=== PATIENT | male | born 1980 | race Caucasian/White ===

== ENCOUNTER 2022-07-14 11:31 | Inpatient (IN) | payer MEDICARE, MEDICAID, SELFPAY ==
[2022-07-14 11:24] VITALS: BMI 32.3
[2022-07-14] MEDS: nicotine 2 mg Gum BUCCAL (13:01)
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
[2022-07-14 14:00] VITALS: BP 149/77; PULSE 84; RESP 18; TEMP 36.6; O2SAT 96
[2022-07-14 19:54] VITALS: BP 159/89; PULSE 64; RESP 16; TEMP 36.6; O2SAT 97
[2022-07-15 06:00] VITALS: BP 133/79; PULSE 70; RESP 18; TEMP 36.6; O2SAT 96
--- NOTE | 2022-07-15 09:03 | P.NPUHP_ITS ---
Providers/Chief Complaint Admitting Physician: Luan Davey MD Chief Complaint: depression HPI NPU History of Present Illness Aguilar Garvey is a 42 year old male who presented to outside hospital reporting suicidal thoughts and concerns for safety. He was transferred to [facility] and admitted to the neuropsychiatric unit for definitive treatment of those issues. He presents today as a very poor historian and often having dramatic pauses then without the question being answered. He reports that he is not currently on medication and that when he had been on medication in the past the medications made him feel worse and not better. Reported there was a period time where he tried medication and felt sluggish and worse overall. He endorsed not knowing the name of medication. He reports that there has been times he has had some outpatient services. He tested but was unclear that he may have had 1 or 2 previous inpatient hospitalizations with any sort retracted that. He appeared confused and disorganized. He reported that he does smoke cigarettes but may be half a pack of cigarettes a week. He denies significant alcohol but did report marijuana use. He denied any other illicit drugs. He denied any drug and alcohol treatment and denied any addiction related charges. The best he appeared to be able to explain was that the reason for his presentation was related to a conflict with his . But whenever he went to explain the situation there were long pauses at times he was actually tearful and eventually he made comments like it does not matter. He reported that he and his had a conflict and that he discovered? When I continue to question when he discovered he never finished the comment. When I alluded to the fact that she had an affair he would not confirm that. When I suggested that she was talking to someone else, he would not confirm that. Then he would say that she always said she would never leave him and that they were solid. And when it seem like he was on the verge of sharing something he would not again go back to it does not matter. When asked whether this was a statement of him feeling suicidal he would not answer and then he would often cry. He was able to articulate an openness to get tobacco replacement as he did say I would like to have a cigarette. We discussed the risks benefits and alternatives of medication to help his mood, but he appeared to paralyzed to consider the possibility. Additionally he was limited in his ability to answer questions of psychosocial history. He appeared to state he had a very possibly 3 times, that he possibly has 6 children but most questions were met with these long pauses. Meds NPU Home Medications Medication Instructions Recorded Confirmed Last Taken Type No Known Home Medications 07/14/22 07/14/22 Unknown History Allergies Allergy/AdvReac Type Severity Reaction Status Date / Time No Known Allergies Allergy Verified 07/14/22 13:20 Mental Status Exam MSE Comments: This is a well-nourished, well-developed white male in hospital scrubs with adequate grooming but limited eye contact. Significant tattooing on his exposed skin. No abnormal movements except for significant psychomotor retardation. Mostly cooperative with exam in moderate to extreme distress. Speech was limited and decreased rate and volume with extended pauses. Thought process disorganized. Thought content: Patient would not leave answer questions related to lethality with not appearing outwardly or inwardly aggressive, there were no delusions reported but it was unclear whether some of these thoughts represent paranoia or auditory delusions, he did not appear to be attending to internal stimuli. Attention and concentration was limited and memory was unreliable but none were formally tested. He was alert and oriented x3. Insight and judgment appear impaired impulse control appears limited. Vitals/I&O/Wt Last Vital Signs Temp 98 F 07/14/22 14:00 Pulse 84 07/14/22 14:00 Resp 18 07/14/22 14:00 BP 149/77 07/14/22 14:00 Pulse Ox 96 07/14/22 14:00 O2 Del Method 07/14/22 11:24 Weight last 48 hrs Weight 90.718 kg Weight 90.718 kg A&P Assessment and plan (1) PTSD (post-traumatic stress disorder): (2) Psychosis: (3) Partner relational problem: (4) Depression: Plan This is a 42-year-old white male with a reported history of PTSD who presents with a very poor historian appearing depressed and despondent about his relationship with his but also possibly exhibiting psychosis as he appeared quite disorganized and unable to articulate the specifics of what was going on. 1. Continue as needed medications as patient is currently on no medication. Attempt to get collateral information and explore whether a mood stabilizer, antipsychotic, antidepressant might be warranted. 2. Continue to test her safety. 3. Encourage individual, group and milieu therapy. 4. Encourage sober living treatment after discharge level of care to which he willing to commit if we can identify that there is a higher addiction presents that he has let on. Involuntary Hold Information 96 Hour Hold: 96 Hour Involuntary Admission: No Attestations NPU Medical Necessity Statement*: Inpatient hospitalization is medically necessary at the clinically appropriate range at this time. We will monitor medications and initiate/make changes as indicated. Patient will be in the hospital for over 2 midnights. Likely to stay 4 to 6 days. Coding Level of Care Code Acute Prosthetics Lab Technician for Pj Stricklandd Diagnoses PTSD (post-traumatic stress disorder) F43.10 Psychosis F29 Partner relational problem Z63.0 Depression F32.A
[2022-07-15] MEDS: nicotine 21 mg Patch 1 PATCH TRANSDERMA (10:02)
[2022-07-15] MEDS: OLANZapine 5 mg ODT PO (11:59)
[2022-07-15 14:00] VITALS: RESP 17
[2022-07-15] MEDS: haloperidol 5 mg Tablet PO (18:19)
[2022-07-15 20:25] VITALS: BP 137/89; PULSE 71; RESP 17; TEMP 36.6; O2SAT 94
[2022-07-16 06:00] VITALS: BP 155/69; PULSE 63; RESP 16; TEMP 36.8; O2SAT 94
[2022-07-16 14:00] VITALS: BP 162/91; PULSE 86; RESP 16; TEMP 36.8; O2SAT 96
--- NOTE | 2022-07-16 19:33 | P.NPUPN_ITS ---
Subjective NPU Subjective: Patient is a 42-year-old white male admitted voluntarily with increased paranoia and a reported history of PTSD. The patient had reported that he did not wish to consider medications and stated that he wanted time to get his thoughts sorted. The patient had been informed that his would not be willing to have the patient return home unless he can considered getting help to manage his mood and his paranoia. The patient appeared somewhat isolative on the milieu and appeared to be at times confused while having conversations with himself. Mental Status Exam MSE Comments: Parviz is a short male who appeared his stated age. His mood was described as okay. His affect appeared odd and subdued. His thought process appeared to be nonlinear and somewhat disorganized. His thought content a ppeared superficial with some rambling speech noted as well. He did at times appear to be hypervigilant and responding to internal stimuli as there was evidence of thought blocking and clear evidence of paranoia. His insight was feeble. His judgment is feeble. His impulse control appeared guarded. Vitals/I&O/Wt Last Vital Signs Temp 98.2 F 07/16/22 14:00 Pulse 86 07/16/22 14:00 Resp 16 07/16/22 14:00 BP 162/91 07/16/22 14:00 Pulse Ox 96 07/16/22 14:00 O2 Del Method 07/16/22 06:00 A&P Assessment and plan (1) PTSD (post-traumatic stress disorder): (2) Impulse control disorder: Plan Patient is a [age]-year-old white male with reported history of PTSD admitted with increased paranoia currently refusing medications. 1. We will attempt to gather collateral information as the patient currently is refusing any medications but does not appear to be showing any level of improvement here on the milieu. 2. Consider antipsychotics to target disorganized thinking. 3. continue to engage in individual and milieu therapy. Involuntary Hold Information 96 Hour Hold: 96 Hour Involuntary Admission: No Attestations NPU Medical Necessity Statement*: Inpatient hospitalization is medically necessary and the clinically appropriate intervention at this time. Continue 15 minute check for safety. Coding Level of Care Code Established Pt Acute Hvac Mechanical Engineer for Pj Fwnelda Patient Type Established History Problem Focused Exam Problem Focused Medical Decision Making Straight Forward Diagnoses PTSD (post-traumatic stress disorder) F43.10 Impulse control disorder F63.9
[2022-07-16] MEDS: OLANZapine 5 mg ODT PO (19:58)
[2022-07-16] MEDS: trazodone 50 mg Tablet PO (19:59)
[2022-07-16 20:26] VITALS: BP 136/86; PULSE 81; RESP 17; TEMP 36.9; O2SAT 96
[2022-07-16] MEDS: nicotine 2 mg Gum BUCCAL (20:48)
[2022-07-17] MEDS: trazodone 50 mg Tablet PO ×2 (03:19→20:25)
[2022-07-17 06:00] VITALS: BP 134/67; PULSE 98; RESP 17; TEMP 36.7; O2SAT 94
[2022-07-17] MEDS: nicotine 2 mg Gum BUCCAL (06:54)
[2022-07-17] MEDS: nicotine 21 mg Patch 1 PATCH TRANSDERMA (08:17)
[2022-07-17 14:00] VITALS: BP 158/99; PULSE 85; RESP 16; TEMP 36.8; O2SAT 98
[2022-07-17] MEDS: haloperidol 5 mg Tablet PO (16:54)
--- NOTE | 2022-07-17 18:37 | W.PM.NPUPNS ---
Subjective NPU Subjective: Patient is a 42-year-old white male admitted voluntarily with increased paranoia and a reported history of PTSD. Patient continued to report that he is thoughts were all confused. He had expressed concern about wanting to take medications and had an extensive discussion with the patient case manager and the typewriter operator automatic of this note regarding how these medications had made him feel like less of a man. He had remained somewhat isolative and uninvolved in group and in milieu therapy. The patient had reported having struggles with tolerating specific medications despite some information from his that his mood and thoughts were under better control with these medications. Patient reported that he continues to have a hard time managing the thoughts regarding his having an affair and reports that his trust towards others was ruined because of this. Mental Status Exam MSE Comments: Parviz is a short male who appeared his stated age. His mood was described as not good. His affect appeared odd and subdued. His thought process appeared to be nonlinear and somewhat disorganized. His thought content showed evidence of thought blocking and active paranoia. Speech: showed normal volume, inconsistent rate with periods of word finding issues, His insight was feeble. His judgment is feeble. His impulse control appeared guarded. Vitals/I&O/Wt Last Vital Signs Temp 98.2 F 07/17/22 14:00 Pulse 85 07/17/22 14:00 Resp 16 07/17/22 14:00 BP 158/99 07/17/22 14:00 Pulse Ox 98 07/17/22 14:00 O2 Del Method 07/17/22 14:00 A&P Assessment and plan (1) PTSD (post-traumatic stress disorder): (2) Impulse control disorder: (3) Psychotic disorder: Plan Patient is a [age]-year-old white male with reported history of PTSD admitted with increased paranoia currently refusing medications. 1. We will attempt to gather collateral information as the patient currently is refusing any medications but does not appear to be showing any level of improvement here on the milieu. 2. Consider antipsychotics to target disorganized thinking. 3. continue to engage in individual and milieu therapy. 4. Patient to be hospitalized involuntarily, he is homeless and shows evidence of paranoia and would require antipsychotic treatment. Involuntary Hold Information 96 Hour Hold: 96 Hour Involuntary Admission: No Attestations NPU Medical Necessity Statement*: Inpatient hospitalization is medically necessary and the clinically appropriate intervention at this time. Patient length of stay likely between 7 and 10 days. Continue 15 minute check for safety. Coding Level of Care Code Established Pt Acute Sales Operations Analyst for Reinaldog Fwnelda Patient Type Established History Problem Focused Exam Problem Focused Medical Decision Making Straight Forward Diagnoses PTSD (post-traumatic stress disorder) F43.10 Impulse control disorder F63.9 Psychotic disorder F29
[2022-07-17] MEDS: OLANZapine 5 mg ODT PO (20:25)
[2022-07-17 22:00] VITALS: BP 113/66; PULSE 70; RESP 16; TEMP 36.7; O2SAT 99
[2022-07-18 06:00] VITALS: BP 117/68; PULSE 71; RESP 16; TEMP 36.6; O2SAT 96
[2022-07-18] MEDS: OLANZapine 5 mg ODT PO ×2 (11:46→19:58)
[2022-07-18 14:00] VITALS: BP 166/61; PULSE 66; RESP 17; TEMP 36.9; O2SAT 96
--- NOTE | 2022-07-18 18:34 | P.NPUPN_ITS ---
Subjective NPU Subjective: Patient is a 42-year-old white male admitted voluntarily with increased paranoia and a reported history of PTSD. The patient continues to spend a significant time pacing around the unit upon defecating about what was going on in his head. He reports that he did not wish to take any medications at this time. He did report that the thoughts in his head and images in his had tended to distract him. The patient reported feeling like I am being kicked around in this place . He reports that he was trying to sort through things. He states that he had struggles with attending groups because he was distracted by his thoughts. Mental Status Exam MSE Comments: He is a short male who appeared his stated age. His mood was described as not good. His affect appeared odd and subdued. His thought process appeared to be nonlinear and somewhat disorganized. His thought content showed evidence of thought blocking and active paranoia. Speech: showed normal volume, inconsistent rate with periods of word finding issues with increase latency in speech, His insight was feeble. His judgment is feeble. His impulse control appeared guarded. Vitals/I&O/Wt Last Vital Signs Temp 98.4 F 07/18/22 14:00 Pulse 66 07/18/22 14:00 Resp 17 07/18/22 14:00 BP 166/61 07/18/22 14:00 Pulse Ox 96 07/18/22 14:00 O2 Del Method 07/17/22 14:00 A&P Assessment and plan (1) PTSD (post-traumatic stress disorder): (2) Impulse control disorder: (3) Psychotic disorder: Plan Patient is a [age]-year-old white male with reported history of PTSD admitted with increased paranoia currently refusing medications. 1. We will attempt to gather collateral information as the patient currently is refusing any medications but does not appear to be showing any level of improvement here on the milieu. 2. Consider antipsychotics to target disorganized thinking. 3. continue to engage in individual and milieu therapy. 4. Patient hospitalized involuntarily, he is homeless and shows evidence of paranoia and would require antipsychotic treatment. He may require forced medication. Involuntary Hold Information 96 Hour Hold: 96 Hour Involuntary Admission: No Attestations NPU Medical Necessity Statement*: Inpatient hospitalization is medically necessary and the clinically appropriate intervention at this time. Patient length of stay likely was between 7 and 10 days. Continue 15 minute check for safety. Coding Level of Care Code Established Pt Acute Pet Care Associate for Chg Fwd Patient Type Established History Problem Focused Exam Problem Focused Medical Decision Making Straight Forward Diagnoses PTSD (post-traumatic stress disorder) F43.10 Impulse control disorder F63.9 Psychotic disorder F29
[2022-07-18] MEDS: trazodone 50 mg Tablet PO (19:58)
[2022-07-18 20:34] VITALS: BP 135/88; PULSE 85; RESP 16; TEMP 36.4; O2SAT 95
[2022-07-19 06:00] VITALS: BP 120/60; PULSE 56; RESP 18; TEMP 37; O2SAT 98
[2022-07-19 14:00] VITALS: BP 122/72; PULSE 68; RESP 18; TEMP 36.1; O2SAT 97
--- NOTE | 2022-07-19 20:31 | P.NPUPN_ITS ---
Subjective NPU Subjective: Patient is a 42-year-old white male admitted voluntarily with increased paranoia and a reported history of PTSD. Patient continued to pace on the unit and reported that he was continuing to hear voices and has had and continued to report having intense images that he was unable to remove from his head. He continued to be actively paranoid and continued to refuse any medications at this time. The patient had reported that he wished to return home but was informed that his family members wished for him to get help prior to returning home. Mental Status Exam MSE Comments: He is a short male who appeared his stated age. His mood was described as not good. His affect appeared odd and subdued. His thought process appeared to be nonlinear and somewhat disorganized. His thought content showed evidence of thought blocking and active paranoia. Speech: showed normal volume, with active periods of word finding issues with increase latency in speech, His insight was feeble. His judgment is feeble. His impulse control appeared guarded. Vitals/I&O/Wt Last Vital Signs Temp 97 F L 07/19/22 14:00 Pulse 68 07/19/22 14:00 Resp 18 07/19/22 14:00 BP 122/72 07/19/22 14:00 Pulse Ox 97 07/19/22 14:00 O2 Del Method 07/19/22 06:00 A&P Assessment and plan (1) PTSD (post-traumatic stress disorder): (2) Impulse control disorder: (3) Psychotic disorder: Plan Patient is a 44 year-old white male with reported history of PTSD, psychosis NOS he has thus admitted with increased paranoia currently refusing medications. 1. We will attempt to gather collateral information as the patient currently is refusing any medications but does not appear to be showing any level of improvement here on the milieu. 2. Consider antipsychotics to target disorganized thinking. 3. continue to engage in individual and milieu therapy. 4. Patient hospitalized involuntarily, he is homeless and shows evidence of paranoia and would require antipsychotic treatment. He may require forced medication. Involuntary Hold Information 96 Hour Hold: 96 Hour Involuntary Admission: No Attestations NPU Medical Necessity Statement*: Inpatient hospitalization is medically necessary and the clinically appropriate intervention at this time. Patient length of stay likely was between 7 and 10 days. Coding Level of Care Code Established Pt Acute Cartridge Maker for Reinaldog Fwd Patient Type Established History Problem Focused Exam Problem Focused Medical Decision Making Straight Forward Diagnoses PTSD (post-traumatic stress disorder) F43.10 Impulse control disorder F63.9 Psychotic disorder F29
[2022-07-19 22:00] VITALS: BP 131/83; PULSE 73; RESP 17; TEMP 36.7; O2SAT 97
[2022-07-20] MEDS: hyDROXYzine 25 mg Capsule 50 MG PO (02:10)
[2022-07-20 06:00] VITALS: BP 136/78; PULSE 86; RESP 17; TEMP 36.9; O2SAT 94
--- NOTE | 2022-07-20 10:58 | PC.NURSE ---
Behavioral Assessment Patient sitting on edge of bed. Denies SI/HI and VH/AH. He is very tearful this morning. We talked about his and kids and he stated, My mom and sister and my don't get along for some reason. I don't know why, but something has to have happened that I don't know about. Patient also states he doesn't have anything anymore. He is disheveled and avoids making eye contact. Patient is cooperative.
[2022-07-20 14:00] VITALS: BP 150/83; PULSE 73; RESP 18; TEMP 36.6; O2SAT 97
--- NOTE | 2022-07-20 18:50 | W.PM.NPUPNS ---
Subjective NPU Subjective: Patient is a 42-year-old white male admitted voluntarily with increased paranoia and a reported history of PTSD. Patient continues to endorse hearing voices and reports that it was often distracting. He reports that his thoughts were not clear. He reported continued difficulties with concentration and sleep. He had reported feeling frustrated and stated that he had trouble trusting anyone's intention he both here and outside at home. The patient denied thoughts of hurting himself or others but reported difficulties with being able to concentrate or focus because of the internal distraction. Mental Status Exam MSE Comments: He is a short male who appeared his stated age. His mood was described as terrible. His affect appeared odd and subdued. His thought process appeared to be nonlinear and somewhat disorganized. His thought content showed evidence of thought blocking and active paranoia. Speech: showed normal volume, with active periods of word finding issues with increase latency in speech, His insight was feeble. His judgment is feeble. His impulse control appeared guarded. Vitals/I&O/Wt Last Vital Signs Temp 98 F 07/20/22 14:00 Pulse 73 07/20/22 14:00 Resp 18 07/20/22 14:00 BP 150/83 07/20/22 14:00 Pulse Ox 97 07/20/22 14:00 O2 Del Method 07/20/22 06:00 A&P Assessment and plan (1) PTSD (post-traumatic stress disorder): (2) Impulse control disorder: (3) Psychotic disorder: Plan Patient is a 44 year-old white male with reported history of PTSD, psychosis NOS he has thus admitted with increased paranoia currently refusing medications. 1. We will attempt to gather collateral information as the patient currently is refusing any medications but does not appear to be showing any level of improvement here on the milieu. 2. Consider antipsychotics to target disorganized thinking. 3. continue to engage in individual and milieu therapy. 4. Patient hospitalized involuntarily, he is homeless and shows evidence of paranoia and would require antipsychotic treatment. He may require forced medication. Involuntary Hold Information 96 Hour Hold: 96 Hour Involuntary Admission: No Attestations NPU Medical Necessity Statement*: Inpatient hospitalization is medically necessary and the clinically appropriate intervention at this time. Patient length of stay likely between 7-10 days. Coding Level of Care Code Established Pt Acute Laundry Bag Punch Operator for Chg Fwd Patient Type Established History Problem Focused Exam Problem Focused Medical Decision Making Straight Forward Diagnoses PTSD (post-traumatic stress disorder) F43.10 Impulse control disorder F63.9 Psychotic disorder F29
[2022-07-20] MEDS: ARIPiprazole 10 mg Tablet 5 MG PO (19:38)
[2022-07-20 20:02] VITALS: BP 165/91; PULSE 90; RESP 16; TEMP 36.7; O2SAT 95
[2022-07-21 06:00] VITALS: BP 123/57; PULSE 64; RESP 16; TEMP 36.6; O2SAT 95
[2022-07-21 14:00] VITALS: BP 133/89; PULSE 83; RESP 20; TEMP 37.1; O2SAT 96
[2022-07-21] MEDS: OLANZapine 5 mg ODT PO (16:02)
--- NOTE | 2022-07-21 19:36 | P.NPUPN_ITS ---
Subjective NPU Subjective: Patient is a 42-year-old white male admitted voluntarily with psychotic disorder NOS and a history of PTSD. Patient continued to report that he spends much of his day thinking about his relationships. He continues to report active thoughts of feeling people were somehow trying to stifle him. He reports having distracting thoughts that often interfere with his ability to speak. He reported feeling sad and tired of managing it. He reported no side effects from his Abilify yesterday. He still reported not feeling any different but did not report side effects. He reports that he is here trying to get help but continue to remain suspicious about the intentions of his and her wi shes. Mental Status Exam MSE Comments: He is a short male who appeared his stated age. His mood was de scribed as not good . His affect appeared odd and subdued. His thought process appeared to be nonlinear and somewhat disorganized. His thought content showed evidence of thought blocking and active paranoia. Speech: showed normal volume, with active periods of word finding issues with increase latency in speech, His insight was feeble. His judgment is feeble. His impulse control appeared guarded. Vitals/I&O/Wt Last Vital Signs Temp 98.7 F 07/21/22 14:00 Pulse 83 07/21/22 14:00 Resp 20 H 07/21/22 14:00 BP 133/89 07/21/22 14:00 Pulse Ox 96 07/21/22 14:00 O2 Del Method 07/21/22 06:00 A&P Assessment and plan (1) PTSD (post-traumatic stress disorder): (2) Impulse control disorder: (3) Psychotic disorder: Plan Patient is a 44 year-old white male with reported history of PTSD, psychosis NOS he has thus admitted with increased paranoia currently refusing medications. 1. We will attempt to gather collateral information as the patient currently is refusing any medications but does not appear to be showing any level of improvement here on the milieu. 2. Consider antipsychotics to target disorganized thinking. 3. continue to engage in individual and milieu therapy. 4. Patient hospitalized involuntarily, he is homeless and shows evidence of paranoia and would require antipsychotic treatment. He has agreed to trial of abilify and will increase to 10mg daily. Involuntary Hold Information 96 Hour Hold: 96 Hour Involuntary Admission: No Attestations NPU Medical Necessity Statement*: Inpatient hospitalization is medically necessary and the clinically appropriate intervention at this time. Patient length of stay likely between 7-10 days. Coding Level of Care Code Established Pt Acute Employment Programs Analyst for Chg Fwd Patient Type Established History Problem Focused Exam Problem Focused Medical Decision Making Straight Forward Diagnoses PTSD (post-traumatic stress disorder) F43.10 Impulse control disorder F63.9 Psychotic disorder F29
[2022-07-21] MEDS: ARIPiprazole 10 mg Tablet PO (20:53)
[2022-07-21 21:12] VITALS: BP 136/78; PULSE 84; RESP 16; TEMP 36.6; O2SAT 97
[2022-07-22 06:00] VITALS: BP 109/64; PULSE 64; RESP 15; TEMP 36.8; O2SAT 97; BMI 32.3
[2022-07-22] MEDS: ARIPiprazole 10 mg Tablet PO (08:52)
[2022-07-22] MEDS: OLANZapine 5 mg ODT PO (13:11)
--- NOTE | 2022-07-22 13:56 | W.PM.NPUPNS ---
Subjective NPU Subjective: Patient is a 42-year-old white male admitted voluntarily with psychotic disorder NOS and a history of PTSD. The patient continued to perseverate about his relationships and stated that he continued to spend excessive amounts of time thinking about it. He had reported that his past trauma had prevented him from having better control of his thoughts. He reported not feeling depressed but reported some feelings of helplessness. He had reported that he continued to have interference that prevented him from being able to concentrate on groups here. Mental Status Exam MSE Comments: He is a short male who appeared his stated age. His mood was described as bad . His affect appeared odd and subdued. His thought process appeared to be more linear but still showing evidence of paranoia. His thought content showed evidence of less thought blocking today with evidence of overvalued ideas. Speech: showed normal volume, with active periods of word finding issues with increase latency in speech, His insight was feeble. His judgment is feeble. His impulse control appeared guarded. Vitals/I&O/Wt Last Vital Signs Temp 98.2 F 07/22/22 06:00 Pulse 64 07/22/22 06:00 Resp 15 07/22/22 06:00 BP 109/64 07/22/22 06:00 Pulse Ox 97 07/22/22 06:00 O2 Del Method 07/22/22 06:00 Weight last 48 hrs Weight 87.713 kg Weight 90.718 kg A&P Assessment and plan (1) PTSD (post-traumatic stress disorder): (2) Impulse control disorder: (3) Psychotic disorder: Plan Patient is a 44 year-old white male with reported history of PTSD, psychosis NOS he has thus admitted with increased paranoia currently refusing medications. 1. Patient appears to be making progress with medication recently. He has agreed to trial of abilify currently at 10mg daily with modest improvement noted in last few days. 2. Consider antipsychotics to target disorganized thinking. 3. continue to engage in individual and milieu therapy. 4. Patient hospitalized involuntarily, he is homeless and shows evidence of paranoia and would require antipsychotic treatment. Involuntary Hold Information 96 Hour Hold: 96 Hour Involuntary Admission: No Attestations NPU Medical Necessity Statement*: Inpatient hospitalization is medically necessary and the clinically appropriate intervention at this time. Patient length of stay likely between 7-10 days. 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
[2022-07-22 14:00] VITALS: BP 106/64; PULSE 92; RESP 20; TEMP 36.9; O2SAT 95
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
--- NOTE | 2022-07-22 17:06 | PC.NURSE ---
Pt stated This is one of the [facility] that I [facility] been [facility] !!! Pt is unhappy at this point about his 96 hour hold papers that he was served.
[2022-07-22 21:37] VITALS: BP 126/71; PULSE 76; RESP 17; TEMP 36.7; O2SAT 96
[2022-07-23 06:00] VITALS: BP 138/72; PULSE 60; RESP 15; TEMP 36.6; O2SAT 92
[2022-07-23] MEDS: ARIPiprazole 10 mg Tablet PO (08:24)
[2022-07-23 14:00] VITALS: BP 142/76; PULSE 75; RESP 18; TEMP 36.8; O2SAT 97
--- NOTE | 2022-07-23 18:17 | W.PM.NPUPNS ---
Subjective NPU Subjective: Patient is a 42-year-old white male admitted voluntarily with psychotic disorder NOS and a history of PTSD. Patient reports that he had done everything in his power to get better at this time and states that he wishes to return home. Patient was informed that he would continue to remain here for 21 days involuntarily. He reported no side effects from his Abilify. He continued to walk around the unit lamenting about his relationship with his . He had been able to attend therapy and stated that he was less distracted by his thoughts. He minimized any thoughts of hurting himself or others today. Mental Status Exam MSE Comments: He is a short male who appeared his stated age. His hygiene was fair, there was no evidence of any abnormal involuntary motor movements. His mood was described as terrible . His affect appeared odd and subdued. His thought process appeared to be more linear but still showing evidence of paranoia. His thought content showed evidence of less thought blocking today with evidence of overvalued ideas. Speech: showed normal volume, with less latency in speech noted, more spontaneous speech. His insight was feeble. His judgment is feeble. His impulse control appeared guarded. Vitals/I&O/Wt Last Vital Signs Temp 98.3 F 07/23/22 14:00 Pulse 75 07/23/22 14:00 Resp 18 07/23/22 14:00 BP 142/76 07/23/22 14:00 Pulse Ox 97 07/23/22 14:00 O2 Del Method 07/23/22 06:00 Weight last 48 hrs Weight 87.713 kg Weight 90.718 kg A&P Assessment and plan (1) PTSD (post-traumatic stress disorder): (2) Impulse control disorder: (3) Psychotic disorder: Plan Patient is a 44 year-old white male with reported history of PTSD, psychosis NOS currently on abilify 10mg daily with continued evidence of psychosis. Patient now involuntarily on 21 day hold. 1. Patient appears to be making progress with medication recently. He has agreed to trial of abilify currently at 10mg daily with modest improvement noted in last few days. 2. Consider antipsychotics to target disorganized thinking. 3. continue to engage in individual and milieu therapy. 4. Patient hospitalized involuntarily, he is homeless and shows evidence of paranoia and would require antipsychotic treatment. Involuntary Hold Information 96 Hour Hold: 96 Hour Involuntary Admission: No Attestations NPU Medical Necessity Statement*: Inpatient hospitalization is medically necessary and the clinically appropriate intervention at this time. Patient length of stay likely between 7-10 days. Coding Level of Care Code Established Pt Acute Film Developer for Chg Fwd Patient Type Established History Problem Focused Exam Problem Focused Medical Decision Making Straight Forward Diagnoses PTSD (post-traumatic stress disorder) F43.10 Impulse control disorder F63.9 Psychotic disorder F29
[2022-07-23 21:18] VITALS: BP 135/79; PULSE 79; RESP 16; TEMP 37; O2SAT 96
[2022-07-23] MEDS: diphenhydrAMINE 25 mg Capsule PO (22:07)
[2022-07-24 06:00] VITALS: BP 103/70; PULSE 65; RESP 17; TEMP 36.6; O2SAT 96
[2022-07-24] MEDS: ARIPiprazole 10 mg Tablet 15 MG PO (08:33)
[2022-07-24] MEDS: OLANZapine 5 mg ODT PO (11:02)
[2022-07-24 14:00] VITALS: RESP 18
--- NOTE | 2022-07-24 16:53 | W.PM.NPUPNS ---
Subjective NPU Subjective: Patient is a 42-year-old white male admitted voluntarily with psychotic disorder NOS and a history of PTSD along with depression. Patient has been redirectable on the [facility] milieu. He continues to report being distracted from his thoughts. He does report wishing to return home to his . He had reported that previously his medications had been helpful for his thoughts but had given them in intractable and unacceptable side effects. He continue to appear suspicious towards other people's intense on the milieu. He reported no side effects from his Abilify. Mental Status Exam MSE Comments: He is a short male who appeared his stated age, pacing the hallways. His hygiene was fair, there was no evidence of any abnormal involuntary motor movements. His mood was described as I don't know . His affect remained odd and subdued. His thought process appeared to be more linear., less thought blocking noted. His thought content showed evidence of paranoia, and continued overvalued ideas. Speech: showed normal volume, with less latency in speech noted, more spontaneous speech. His insight was feeble. His judgment is feeble. His impulse control appeared guarded. Vitals/I&O/Wt Last Vital Signs Temp 97.9 F 07/24/22 06:00 Pulse 65 07/24/22 06:00 Resp 17 07/24/22 06:00 BP 103/70 07/24/22 06:00 Pulse Ox 96 07/24/22 06:00 O2 Del Method 07/24/22 06:00 A&P Assessment and plan (1) PTSD (post-traumatic stress disorder): (2) Impulse control disorder: (3) Psychotic disorder: Plan Patient is a 44 year-old white male with reported history of PTSD, psychosis NOS currently on abilify 10mg daily with continued evidence of psychosis. Patient now involuntarily on 21 day hold. 1. Patient appears to be making progress with medication recently. Increase abilify to 15mg daily, he has shown modest improvement. 2. Consider antipsychotics to target disorganized thinking. 3. continue to engage in individual and milieu therapy. 4. Patient hospitalized involuntarily, he is homeless and shows evidence of paranoia and would require antipsychotic treatment. Involuntary Hold Information 96 Hour Hold: 96 Hour Involuntary Admission: No Attestations NPU Medical Necessity Statement*: Inpatient hospitalization is medically necessary and the clinically appropriate intervention at this time. Patient length of stay likely between 7-10 days. 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
[2022-07-24 20:50] VITALS: BP 121/76; PULSE 84; RESP 17; TEMP 36.4; O2SAT 96
[2022-07-25 06:00] VITALS: BP 126/72; PULSE 62; RESP 16; TEMP 36.4; O2SAT 98
[2022-07-25] MEDS: ARIPiprazole 10 mg Tablet 15 MG PO (08:57)
[2022-07-25 14:00] VITALS: BP 133/81; PULSE 78; RESP 17; TEMP 36.6; O2SAT 98
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
[2022-07-25] MEDS: diphenhydrAMINE 50 mg Capsule PO (19:51)
[2022-07-25 21:03] VITALS: BP 115/78; PULSE 83; RESP 18; O2SAT 96
[2022-07-26 06:00] VITALS: BP 116/69; PULSE 108; RESP 18; TEMP 36.7; O2SAT 95
[2022-07-26] MEDS: ARIPiprazole 10 mg Tablet 15 MG PO (08:37)
[2022-07-26] MEDS: escitalopram 10 mg Tablet PO (08:37)
--- NOTE | 2022-07-26 09:37 | P.NPUPN_ITS ---
Subjective NPU Subjective: Patient presents today reporting a much better than when we met 11 days ago. He reports that he and his have been in communication and at this point it does appear that the relationship is going to be over. He reports that he did not deal with that he just needs to manage his needs. He reports a goal and plan to return to [place] and consider employment, housing and those considerations. He reported his medications are working fine and that he is eating and sleeping well. We discussed starting to assist him by exploring his readiness for discharge. Mental Status Exam MSE Comments: This is a well-nourished, well-developed white male in hospital scrubs with adequate grooming but limited eye contact. Significant tattooing on his exposed skin. No abnormal movements except for mild psychomotor retardation. Cooperative with exam in mild distress. Speech was more spontaneous but decreased rate and volume with less pauses/thought blocking. Thought process more organized. Thought content: Patient denies suicidal or homicidal ideations, there were no delusions reported and his paranoia/guardedness is improving, he denied auditory or visual hallucinations. Attention and concentration was improving and memory was more reliable but none were formally tested. He was alert and oriented x3. Insight and judgment appear improving, impulse control appears limited. Vitals/I&O/Wt Last Vital Signs Temp 98.1 F 07/26/22 06:00 Pulse 108 H 07/26/22 06:00 Resp 18 07/26/22 06:00 BP 116/69 07/26/22 06:00 Pulse Ox 95 07/26/22 06:00 O2 Del Method 07/25/22 06:00 A&P Assessment and plan (1) PTSD (post-traumatic stress disorder): (2) Impulse control disorder: (3) Psychotic disorder: (4) Schizoaffective disorder: Plan Patient is a 44 year-old white male with reported history of PTSD, psychosis NOS currently on abilify with psychosis and depression. Patient now involuntarily on 21 day hold. 1. Patient appears to be making progress with medication recently. Continue abilify at 15mg daily, he has shown modest improvement. Added lexapro 10mg in am to target depression. 2. Consider antipsychotics to target disorganized thinking. 3. continue to engage in individual and milieu therapy. 4. We will work with the treatment team to start identified discharge possibilities. Involuntary Hold Information 96 Hour Hold: 96 Hour Involuntary Admission: No Attestations NPU Medical Necessity Statement*: Inpatient hospitalization is medically necessary and the clinically appropriate intervention at this time. We will monitor medications and make changes as indicated. Patient length of stay likely between 5-8 days. Coding Level of Care Code Acute Sous Chef Kitchen Manager for g Fwd Diagnoses PTSD (post-traumatic stress disorder) F43.10 Impulse control disorder F63.9 Psychotic disorder F29 Schizoaffective disorder F25.9
[2022-07-26 14:00] VITALS: BP 124/64; PULSE 75; RESP 15; TEMP 36.8; O2SAT 95
[2022-07-26 20:45] VITALS: BP 115/64; PULSE 72; RESP 16; TEMP 36.6; O2SAT 97
[2022-07-27 06:00] VITALS: BP 112/57; PULSE 69; RESP 16; TEMP 36.6; O2SAT 96
[2022-07-27] MEDS: escitalopram 10 mg Tablet PO (08:41)
[2022-07-27] MEDS: ARIPiprazole 10 mg Tablet 15 MG PO (08:41)
[2022-07-27 14:00] VITALS: BP 128/81; PULSE 65; RESP 15; TEMP 36.7; O2SAT 96
--- NOTE | 2022-07-27 15:25 | PC.NURSE ---
PT REQUESTED ESCITALOPRAM LITERATURE. PRINTED AND GAVE TO HIM
--- NOTE | 2022-07-27 17:49 | P.NPUPN_ITS ---
Subjective NPU Subjective: Patient presents today continuing to have significant psychomotor slowing during interactions. But certainly not at a level he had admission. Staff reports of him still seeming quite indecisive in his interactions. We discussed his 21-day hold being up on 08/13/2022. We discussed him working with the treatment team for discharge options soon and us awaiting continued improvement and stability. Mental Status Exam MSE Comments: This is a well-nourished, well-developed white male in hospital scrubs with adequate grooming but limited eye contact. Significant tattooing on his exposed skin. No abnormal movements except for continued psychomotor retardation. Cooperative with exam in mild distress. Speech was more spontaneous but decreased rate and volume with less pauses/thought blocking. Thought process more organized. Thought content: Patient denies suicidal or homicidal ideations, there were no delusions reported and his paranoia/guardedness is improving, he denied auditory or visual hallucinations. Attention and concentration was improving and memory was more reliable but none were formally tested. He was alert and oriented x3. Insight and judgment appear improving, impulse control appears limited. Vitals/I&O/Wt Last Vital Signs Temp 98.1 F 07/27/22 14:00 Pulse 65 07/27/22 14:00 Resp 15 07/27/22 14:00 BP 128/81 07/27/22 14:00 Pulse Ox 96 07/27/22 14:00 O2 Del Method 07/25/22 06:00 A&P Assessment and plan (1) PTSD (post-traumatic stress disorder): (2) Impulse control disorder: (3) Psychotic disorder: (4) Schizoaffective disorder: Plan Patient is a 44 year-old white male with reported history of PTSD, psychosis NOS currently on abilify with psychosis and depression. Patient now involuntarily on 21 day hold. 1. Patient appears to be making progress with medication recently. Continue abilify at 15mg daily, he has shown modest improvement. Added lexapro 10mg in am to target depression. 2. Consider antipsychotics to target disorganized thinking. 3. continue to engage in individual and milieu therapy. 4. We will work with the treatment team to start identified discharge possibilities. Involuntary Hold Information 96 Hour Hold: 96 Hour Involuntary Admission: No Attestations NPU Medical Necessity Statement*: Inpatient hospitalization is medically necessary and the clinically appropriate intervention at this time. We will monitor medications and make changes as indicated. Likely length of stay 5-8 days. Coding Level of Care Code Acute Customer Experience Professional for Chg Fwd Diagnoses PTSD (post-traumatic stress disorder) F43.10 Impulse control disorder F63.9 Psychotic disorder F29 Schizoaffective disorder F25.9
[2022-07-27 20:26] VITALS: BP 131/80; PULSE 72; RESP 16; O2SAT 98
[2022-07-27] MEDS: diphenhydrAMINE 50 mg Capsule PO (20:36)
[2022-07-28 06:00] VITALS: BP 112/57; PULSE 64; RESP 18; O2SAT 96
[2022-07-28] MEDS: escitalopram 10 mg Tablet PO (07:39)
[2022-07-28] MEDS: ARIPiprazole 10 mg Tablet 15 MG PO (07:39)
[2022-07-28 14:00] VITALS: BP 128/77; PULSE 73; RESP 16; TEMP 36.6; O2SAT 96
--- NOTE | 2022-07-28 14:18 | P.NPUPN_ITS ---
Subjective NPU Subjective: Patient presented today very interested in the plan want to talk about his reality forward. When he reported was going to have his own place, return to [place], and be able to see his children. We really were reasonable desires and that on Saturday he is not working with the treatment team on ways we can assist him in those endeavors. We agreed that the most important thing was for him to have clarity of cognition and had the psychosis resolved. Mental Status Exam MSE Comments: This is a well-nourished, well-developed white male in hospital scrubs with adequate grooming but limited eye contact. Significant tattooing on his exposed skin. No abnormal movements except for continued psychomotor retardation. Cooperative with exam in mild distress. Speech was more spontaneous but decreased rate and volume with less pauses/thought blocking. Mood described as a little better, affect still flat and subdued. Thought process more organized. Thought content: Patient denies suicidal or homicidal ideations, there were no delusions reported and his paranoia/guardedness is improving, he denied auditory or visual hallucinations. Attention and concentration was improving and memory was more reliable but none were formally tested. He was alert and oriented x3. Insight and judgment appear improving, impulse control appears limited. Vitals/I&O/Wt Last Vital Signs Temp 97.7 F 07/28/22 21:09 Pulse 65 07/28/22 21:09 Resp 18 07/28/22 21:09 BP 129/79 07/28/22 21:09 Pulse Ox 96 07/28/22 21:09 O2 Del Method 07/28/22 06:00 A&P Assessment and plan (1) PTSD (post-traumatic stress disorder): (2) Impulse control disorder: (3) Psychotic disorder: (4) Schizoaffective disorder: Plan Patient is a 44 year-old white male with reported history of PTSD, psychosis NOS currently on abilify with psychosis and depression. Patient now involuntarily on 21 day hold. 1. Patient appears to be making progress with medication recently. Continue abilify at 15mg daily, he has shown modest improvement. Added lexapro 10mg in am to target depression. 2. Consider antipsychotics to target disorganized thinking. 3. continue to engage in individual and milieu therapy. 4. We will work with the treatment team to start identified discharge possibilities. Involuntary Hold Information 96 Hour Hold: 96 Hour Involuntary Admission: No Attestations NPU Medical Necessity Statement*: Inpatient hospitalization is medically necessary and the clinically appropriate intervention at this time. We will monitor medications and make changes as indicated. Likely length of stay 5-8 days. Coding Level of Care Code Acute Cashier Parking Lot for g Fwd Diagnoses PTSD (post-traumatic stress disorder) F43.10 Impulse control disorder F63.9 Psychotic disorder F29 Schizoaffective disorder F25.9
[2022-07-28] MEDS: acetaminophen 325 mg Tablet 650 MG PO (17:48)
[2022-07-28] MEDS: diphenhydrAMINE 50 mg Capsule PO (20:59)
[2022-07-28 21:09] VITALS: BP 129/79; PULSE 65; RESP 18; TEMP 36.5; O2SAT 96
[2022-07-29 06:00] VITALS: BP 105/56; PULSE 56; RESP 16; TEMP 36.3; O2SAT 95
[2022-07-29] MEDS: escitalopram 10 mg Tablet PO (08:31)
[2022-07-29] MEDS: ARIPiprazole 10 mg Tablet 15 MG PO (08:31)
--- NOTE | 2022-07-29 10:36 | P.NPUPN_ITS ---
Subjective NPU Subjective: Patient presents today reporting that he is doing okay. He reports that he is interested in talking with the treatment team so that he can possibly look at what options are available in the [facility]. We talked about options that this poem writer was aware of. Otherwise he denies any changes and reports he feels like he is getting back to a positive or at least better place. Mental Status Exam MSE Comments: This is a well-nourished, well-developed white male in hospital scrubs with adequate grooming but limited eye contact. Significant tattooing on his exposed skin. No abnormal movements except for continued psychomotor retardation. Cooperative with exam in mild distress. Speech was more spontaneous but decreased rate and volume with less pauses/thought blocking. Mood described as a little better, affect still flat and subdued. Thought process more organized. Thought content: Patient denies suicidal or homicidal ideations, there were no delusions reported and his paranoia/guardedness is improving, he denied auditory or visual hallucinations. Attention and concentration was improving and memory was more reliable but none were formally tested. He was alert and oriented x3. Insight and judgment appear improving, impulse control appears limited. Vitals/I&O/Wt Last Vital Signs Temp 97.7 F 07/28/22 21:09 Pulse 65 07/28/22 21:09 Resp 18 07/28/22 21:09 BP 129/79 07/28/22 21:09 Pulse Ox 96 07/28/22 21:09 O2 Del Method 07/28/22 06:00 A&P Assessment and plan (1) PTSD (post-traumatic stress disorder): (2) Impulse control disorder: (3) Psychotic disorder: (4) Schizoaffective disorder: Plan Patient is a 44 year-old white male with reported history of PTSD, psychosis NOS currently on abilify with psychosis and depression. Patient now involuntarily on 21 day hold. 1. Patient appears to be making progress with medication recently. Continue abilify at 15mg daily, he has shown modest improvement. Added lexapro 10mg in am to target depression. 2. Consider antipsychotics to target disorganized thinking. 3. continue to engage in individual and milieu therapy. 4. We will work with the treatment team to start identified discharge possibilities. Involuntary Hold Information 96 Hour Hold: 96 Hour Involuntary Admission: No Attestations NPU Medical Necessity Statement*: Inpatient hospitalization is medically necessary and the clinically appropriate intervention at this time. We will monitor medications and make changes as indicated. Likely length of stay 4-7 days. Coding Level of Care Code Acute Stain Sprayer for [facility] Fwd Diagnoses PTSD (post-traumatic stress disorder) F43.10 Impulse control disorder F63.9 Psychotic disorder F29 Schizoaffective disorder F25.9
[2022-07-29 14:00] VITALS: BP 116/57; PULSE 64; RESP 17; TEMP 36.8; O2SAT 94
[2022-07-29 20:27] VITALS: RESP 18
[2022-07-29] MEDS: diphenhydrAMINE 50 mg Capsule PO (20:42)
[2022-07-30 06:00] VITALS: BP 134/59; PULSE 74; RESP 18; TEMP 36.6; O2SAT 97
[2022-07-30] MEDS: ARIPiprazole 10 mg Tablet 15 MG PO (08:22)
[2022-07-30] MEDS: escitalopram 10 mg Tablet PO (08:22)
[2022-07-30 14:00] VITALS: BP 116/78; PULSE 81; RESP 18; TEMP 36.6; O2SAT 98
--- NOTE | 2022-07-30 15:07 | P.NPUPN_ITS ---
Subjective NPU Subjective: Patient presents today open to working with the social work team on possible targets for discharge as he shows improvement. He denied any issues with medications and mostly focused on developing plans for where he would go, where he can still have proximity to his children. Today he spoke again about being heartbroken and we discussed that it is a process. Mental Status Exam MSE Comments: This is a well-nourished, well-developed white male in hospital scrubs with adequate grooming but limited eye contact. Significant tattooing on his exposed skin. No abnormal movements except for continued psychomotor retardation. Cooperative with exam in mild distress. Speech was more spontaneous but decreased rate and volume with less pauses/thought blocking. Mood described as getting better but feeling heartbroken/sad at times today, affect still flat and subdued. Thought process more organized. Thought content: Patient denies suicidal or homicidal ideations, there were no delusions reported and his paranoia/guardedness is improving, he denied auditory or visual hallucinations. Attention and concentration was improving and memory was more reliable but none were formally tested. He was alert and oriented x3. Insight and judgment appear improving, impulse control appears limited. Vitals/I&O/Wt Last Vital Signs Temp 98.1 F 07/30/22 21:25 Pulse 88 07/30/22 21:25 Resp 18 07/30/22 21:25 BP 146/74 07/30/22 21:25 Pulse Ox 97 07/30/22 21:25 O2 Del Method 07/30/22 14:00 Weight last 48 hrs Weight 91.354 kg A&P Assessment and plan (1) PTSD (post-traumatic stress disorder): (2) Impulse control disorder: (3) Psychotic disorder: (4) Schizoaffective disorder: Plan Patient is a 44 year-old white male with reported history of PTSD, psychosis NOS currently on abilify with psychosis and depression. Patient now involuntarily on 21 day hold. 1. Patient appears to be making progress with medication recently. Continue abilify at 15mg daily, he has shown modest improvement. Added lexapro 10mg in am to target depression. 2. Consider antipsychotics to target disorganized thinking. 3. continue to engage in individual and milieu therapy. 4. We will work with the treatment team to start identified discharge possibilities. Involuntary Hold Information 96 Hour Hold: 96 Hour Involuntary Admission: No Attestations NPU Medical Necessity Statement*: Inpatient hospitalization is medically necessary and the clinically appropriate intervention at this time. We will monitor medications and make changes as indicated. Likely length of stay 3-6 days. Coding Level of Care Code Acute Lay Out Machine Operator for [facility] Fwd Diagnoses PTSD (post-traumatic stress disorder) F43.10 Impulse control disorder F63.9 Psychotic disorder F29 Schizoaffective disorder F25.9
[2022-07-30] MEDS: quetiapine 25 mg Tablet 50 MG PO (21:19)
[2022-07-30 21:25] VITALS: BP 146/74; PULSE 88; RESP 18; TEMP 36.7; O2SAT 97
[2022-07-31 06:00] VITALS: BP 119/66; PULSE 58; RESP 18; TEMP 36.7; O2SAT 93
[2022-07-31] MEDS: escitalopram 10 mg Tablet PO (09:21)
[2022-07-31] MEDS: ARIPiprazole 10 mg Tablet 15 MG PO (09:21)
[2022-07-31 14:00] VITALS: BP 125/74; PULSE 90; RESP 16; TEMP 36.6; O2SAT 98
--- NOTE | 2022-07-31 15:05 | P.NPUPN_ITS ---
Subjective NPU Subjective: Patient returns today reporting that he is feeling a little better. After much deliberation he did agree to the Abilify Maintena injection 400 mg. We discussed the risks, benefits and alternatives of the injection and the possibility of it being available in 2 months increments. He worked with the treatment team on options for his residence. We discussed the plan for discharge in 48 hours. Mental Status Exam MSE Comments: This is a well-nourished, well-developed white male in hospital scrubs with adequate grooming but limited eye contact. Significant tattooing on his exposed skin. No abnormal movements except for continued psychomotor retardation. Cooperative with exam in mild distress. Speech was more spontaneous but decreased rate and volume with less pauses/thought blocking. M ood described as getting better, affect still flat and subdued. Thought process more organized. Thought content: Patient denies suicidal or homicidal ideations, there were no delusions reported and his paranoia/guardedness is improving, he denied auditory or visual hallucinations. Attention and concentration was improving and memory was more reliable but none were formally tested. He was alert and oriented x3. Insight and judgment appear improving, impulse control appears limited. Vitals/I&O/Wt Last Vital Signs Temp 98.0 F 07/31/22 20:37 Pulse 76 07/31/22 20:37 Resp 17 07/31/22 20:37 BP 110/64 07/31/22 20:37 Pulse Ox 96 07/31/22 20:37 O2 Del Method 07/30/22 14:00 A&P Assessment and plan (1) PTSD (post-traumatic stress disorder): (2) Impulse control disorder: (3) Psychotic disorder: (4) Schizoaffective disorder: Plan Patient is a 44 year-old white male with reported history of PTSD, psychosis NOS currently on abilify with psychosis and depression. Patient now involuntarily on 21 day hold. 1. Patient appears to be making progress with medication recently. Continue abilify at 15mg daily, he has shown modest improvement. Added lexapro 10mg in am to target depression. Initiate Abilify Maintena 400 mg IM. 2. Consider antipsychotics to target disorganized thinking. 3. continue to engage in individual and milieu therapy. 4. We will work with the treatment team to start identified discharge possibilities. Involuntary Hold Information 96 Hour Hold: 96 Hour Involuntary Admission: No Attestations NPU Medical Necessity Statement*: Inpatient hospitalization is medically necessary and the clinically appropriate intervention at this time. We will monitor medications and make changes as indicated. Likely length of stay 2-4 days. Coding Level of Care Code Acute Vehicle Cost Engineer for [facility] Fwd Diagnoses PTSD (post-traumatic stress disorder) F43.10 Impulse control disorder F63.9 Psychotic disorder F29 Schizoaffective disorder F25.9
[2022-07-31 20:37] VITALS: BP 110/64; PULSE 76; RESP 17; TEMP 36.7; O2SAT 96
[2022-07-31] MEDS: quetiapine 25 mg Tablet 50 MG PO (20:56)
[2022-07-31] MEDS: ARIPiprazole Maintena 400 MG IM (20:58)
[2022-08-01 06:00] VITALS: BP 119/67; PULSE 86; RESP 17; TEMP 36.7; O2SAT 98
[2022-08-01] MEDS: ARIPiprazole 10 mg Tablet 15 MG PO (08:48)
[2022-08-01] MEDS: escitalopram 10 mg Tablet PO (08:49)
--- NOTE | 2022-08-01 12:26 | P.NPUPN_ITS ---
Subjective NPU Subjective: Patient presents today reporting that he is doing well on medication but starting to have anxiety about moving forward. Wondering what to do, worried that he might fail. We discussed talking about again in the morning to make sure that he is in fact ready for discharge. He reports he is eating sleeping well. Mental Status Exam MSE Comments: This is a well-nourished, well-developed white male in hospital scrubs with adequate grooming but limited eye contact. Significant tattooing on his exposed skin. No abnormal movements except for continued psychomotor retardation. Cooperative with exam in mild distress. Speech was more spontaneous but decreased rate and volume with less pauses/thought blocking. Mood described as getting better, affect still flat and subdued. Thought process more organized. Thought content: Patient denies suicidal or homicidal ideations, there were no delusions reported and his paranoia/guardedness is improving, he denied auditory or visual hallucinations. Attention and concentration was improving and memory was more reliable but none were formally tested. He was alert and oriented x3. Insight and judgment appear improving, impulse control appears limited. Vitals/I&O/Wt Last Vital Signs Temp 98.0 F 07/31/22 20:37 Pulse 76 07/31/22 20:37 Resp 17 07/31/22 20:37 BP 110/64 07/31/22 20:37 Pulse Ox 96 07/31/22 20:37 O2 Del Method 07/30/22 14:00 A&P Assessment and plan (1) PTSD (post-traumatic stress disorder): (2) Impulse control disorder: (3) Psychotic disorder: (4) Schizoaffective disorder: Plan Patient is a 44 year-old white male with reported history of PTSD, psychosis NOS currently on abilify with psychosis and depression. Patient now involuntarily on 21 day hold. 1. Patient appears to be making progress with medication recently. Continue abilify at 15mg daily, he has shown modest improvement. Added lexapro 10mg in am to target depression. Initiated Abilify Maintena 400 mg IM. 2. We will work with him on decision whether to contact his prior to leaving. 3. continue to engage in individual and milieu therapy. 4. Tentative plan for discharge in the morning but we will evaluate if he needs a little more time for this to be successful outpatient Involuntary Hold Information 96 Hour Hold: 96 Hour Involuntary Admission: No Attestations NPU Medical Necessity Statement*: Inpatient hospitalization is medically necessary and the clinically appropriate intervention at this time. We will monitor medications and make changes as indicated. Likely length of stay 1-3 days. Coding Level of Care Code Acute Adventure Guide for [facility] Fwd Diagnoses PTSD (post-traumatic stress disorder) F43.10 Impulse control disorder F63.9 Psychotic disorder F29 Schizoaffective disorder F25.9
[2022-08-01 14:00] VITALS: BP 117/72; PULSE 70; RESP 16; TEMP 36.7; O2SAT 97
[2022-08-01] MEDS: quetiapine 25 mg Tablet 50 MG PO (20:46)
[2022-08-01 21:57] VITALS: BP 127/79; PULSE 63; RESP 17; TEMP 36.7; O2SAT 97
[2022-08-02 06:00] VITALS: BP 125/65; PULSE 65; RESP 17; TEMP 36.5; O2SAT 96
[2022-08-02] MEDS: ARIPiprazole 10 mg Tablet 15 MG PO (08:28)
[2022-08-02] MEDS: escitalopram 10 mg Tablet PO (08:28)
--- NOTE | 2022-08-02 08:43 | PC.NURSE ---
Nursing Behavioral Assessment Patient denies SI/HI and AH/VH. Patient states he's not sure how he's feeling this morning and that when he gets out he plans on not trying with his anymore. Patient is flat, but cooperative this morning.
--- NOTE | 2022-08-02 11:49 | P.NPUDS_ITS ---
Diagnoses at Discharge Discharge Diagnosis (1) PTSD (post-traumatic stress disorder): Status: Acute (2) Impulse control disorder: Status: Acute (3) Psychotic disorder: Status: Acute (4) Schizoaffective disorder: Status: Acute Reason for Visit Reason for Visit: depression Brief History: History of Present Illness Aguilar Garvey is a 42 year old male who presented to outside hospital reporting suicidal thoughts and concerns for safety. He was transferred to [facility] and admitted to the neuropsychiatric unit for definitive treatment of those issues. He presents today as a very poor historian and often having dramatic pauses then without the question being answered. He reports that he is not currently on medication and that when he had been on medication in the past the medications made him feel worse and not better. Reported there was a period ti me where he tried medication and felt sluggish and worse overall. He endorsed not knowing the name of medication. He reports that there has been times he has had some outpatient services. He tested but was unclear that he may have had 1 or 2 previous inpatient hospitalizations with any sort retracted that. He appeared confused and disorganized. He reported that he does smoke cigarettes but may be half a pack of cigarettes a week. He denies significant alcohol but did report marijuana use. He denied any other illicit drugs. He denied any drug and alcohol treatment and denied any addiction related charges. The best he appeared to be able to explain was that the reason for his presentation was related to a conflict with his . But whenever he went to explain the situation there were long pauses at times he was actually tearful and eventually he made comments like it does not matter. He reported that he and his had a conflict and that he discovered? When I continue to question when he discovered he never finished the comment. When I alluded to the fact that she had an affair he would not confirm that. When I suggested that she was talking to someone else, he would not confirm that. Then he would say that she always said she would never leave him and that they were solid. And when it seem like he was on the verge of sharing something he would not again go back to it does not matter. When asked whether this was a statement of him feeling suicidal he would not answer and then he would often cry. He was able to articulate an openness to get tobacco replacement as he did say I would like to have a cigarette. We discussed the risks benefits and alternatives of medication to help his mood, but he appeared to paralyzed to consider the possibility. Ad ditionally he was limited in his ability to answer questions of psychosocial history. He appeared to state he had a very possibly 3 times, that he possibly has 6 children but most questions were met with these long pauses. Hospital Course Hospital Course He very slowly acclimated to the individual, group and milieu therapies provided. He was initially near catatonic in his level of process in regards to what to do. The psychotic state remained until he was started on Abilify titrated to 15 mg p.o. daily and that he received the Abilify Maintena 400 mg IM a few days prior to discharge. He wanted treatment team to find appropriate housing and follow-up. He had significant improvement during the stay and was a ble to contract for safety outside hospital prior to discharge. At the outside hospital, patient had routine laboratory studies which were within normal limits except for few outliers. Additionally there was a general medical evaluation which was also within normal limits and revealed no new acute processes. Discharge Summary: At the time of discharge, he denied psychosis and lethality was resolving. Mood and anxiety were well managed. Patient endorsed a plan to follow-up with the aftercare recommendations of the treatment team. Patient was evaluated and deemed to be absent credible lethality, and had achieved the maximum benefit from an inpatient hospitalization, so was discharged. Involuntary Hold Information 96 Hour Hold: 96 Hour Involuntary Admission: No Mental Status Exam MSE Comments: This is a well-nourished, well-developed white male in hospital scrubs with adequate grooming but limited eye contact. Significant tattooing on his exposed skin. No abnormal movements except for continued mild and resolving psychomotor retardation. Cooperative with exam in no acute distress. Speech was more spontaneous but slightly decreased rate and volume. Mood described as anxious but better, affect less flat and subdued. Thought process more organized. Thought content: Patient denies suicidal or homicidal ideations, there were no delusions reported and his paranoia/guardedness is improving, he denied auditory or visual hallucinations. Attention and concentration was improving and memory was more reliable but none were formally tested. He was alert and oriented x3. Insight and judgment appear improving, impulse control appears limited. Discharge Data Vitals: Last Vital Signs Temp 97.7 F 08/02/22 06:00 Pulse 65 08/02/22 06:00 Resp 17 08/02/22 06:00 BP 125/65 08/02/22 06:00 Pulse Ox 96 08/02/22 06:00 O2 Del Method 08/02/22 06:00 Discharge Plan Discharge Patient Disposition: Home Condition: Stable Prescriptions: New aripiprazole 15 mg tablet 15 mg PO DAILY 30 Days Qty: 11 0RF quetiapine 25 mg Tablet 50 mg PO BEDTIME 30 Days Qty: 60 1RF escitalopram oxalate 10 mg Tablet 10 mg PO DAILY 30 Days Qty: 30 1RF Abilify Maintena 400 mg suspension,extended rel recon 400 mg IM Q28D 28 Days Qty: 1 1RF Rx Instructions: next injection 08/28/22 Discharge Orders: Discharge Order (Routine); Ordered 08/02/22 Ordered By: Luan Davey Referrals: [facility] [Other] [facility] [Other] - 08/08/22 2:00 pm (Show up 45 minutes early to complete paperwork. This is an intial assessement with Isi Anderson) [facility] [Other] - 08/14/22 12:40 pm (Show up 15 minutes early) [facility] [Other] Discharge Diet: Regular Discharge Activity: Resume usual activity Patient Instructions: Quetiapine (By mouth), Escitalopram (By mouth), Aripiprazole (By mouth), Aripiprazole (By injection), Depression (DC), Schizoaffective Disorder (DC), Opioid Safety Discharge Attestations NPU Time Spent in Discharge Care*: less than 30 min Specific Discharge Activities: Specific discharge activities: educating patient, discussing with case folder/social workers/dc planners, documenting/other paperwork and evaluating patient/reviewing data Coding Level of Care Code Acute Chg FW DC note Diagnoses PTSD (post-traumatic stress disorder) F43.10 Impulse control disorder F63.9 Psychotic disorder F29 Schizoaffective disorder F25.9
[2022-08-02 12:01] VITALS: BP 125/65; PULSE 65; RESP 17; TEMP 36.5; O2SAT 96
[2022-08-02 14:00] VITALS: BP 136/72; PULSE 82; RESP 18; TEMP 36.7; O2SAT 96
== END 2022-08-02 16:00 | disposition home or self-care (01) | DRG 885 ==
PROVIDERS: Admitting Provider Psychiatry & Neurology Psychiatry; Visit Provider Psychiatry & Neurology Psychiatry
DX: F25.9 Schizoaffective disorder, unspecified (principal); R45.851 Suicidal ideations; F17.210 Nicotine dependence, cigarettes, uncomplicated; F12.90 Cannabis use, unspecified, uncomplicated; Z63.0 Problems in relationship with spouse or partner; F43.10 Post-traumatic stress disorder, unspecified
CPT/HCPCS: 96372; 97150; 97165; Q0163